=== PATIENT | male | born 1970 | race Two or more races ===

== ENCOUNTER 2019-05-18 19:46 | Emergency (ER) | payer MEDICAID ==
[~2019-05-18] VITALS: Ht 170.2 cm; Wt 81.6 kg
[2019-05-18 21:49] VITALS: BP 151/94
== END 2019-05-18 21:50 | disposition home or self-care (01) ==
LOC: ER 19:46
DX: R04.2 Hemoptysis (principal); F17.290 Nicotine dependence, other tobacco product, uncomplicated
CPT/HCPCS: 71046; 99283; 99406